=== PATIENT | male | born 1940 | race Hispanic/Latino ===

== ENCOUNTER → 2018-11-15 | Day surgery (SDC) | payer OTHER ==
[2018-11-11 13:15] LABS: BASOPHILS % 0.3 % (0.0-1.0); EOSINOPHILS # (AUTO) 0.1 (0.0-0.4); EOSINOPHILS % 1.9 % (0.0-6.0); HEMATOCRIT 38.4 % (38.2-49.6); HEMOGLOBIN 12.9 g/dL (14.0-18.0); LYMPHOCYTES # (AUTO) 1.8 (1.0-3.2); LYMPHOCYTES % 26.4 % (18.0-39.1); MEAN CORPUSCULAR HEMOGLOBIN 31.8 pg (28-32); MEAN CORPUSCULAR HGB CONC 33.6 g/dL (31-35); MEAN CORPUSCULAR VOLUME 94.6 fL (81-99); MONOCYTES # (AUTO) 0.5 (0.2-0.8); MONOCYTES % 7.1 % (4.4-11.3); NEUTROPHILS # (AUTO) 4.3 (2.1-6.9); PLATELET COUNT 195 x10e3/uL (140-360); RED BLOOD COUNT 4.06 x10e6/uL (4.3-5.7); RED CELL DISTRIBUTION WIDTH 12.6 % (11.7-14.4)
[2018-11-11 13:32] LABS: BLOOD UREA NITROGEN 21 mg/dL (7-26); BUN/CREATININE RATIO 19 (6-25); CALCIUM 9.3 mg/dL (8.4-10.2); CARBON DIOXIDE 26 mmol/L (22-29); CHLORIDE 100 mmol/L (98-107); CREATININE, SERUM 1.12 mg/dL (0.72-1.25); EST GLOMERULAR FILTRATION RATE > 60 ML/MIN (60-); GLUCOSE 213 mg/dL (74-118); SODIUM 134 mmol/L (136-145)
--- NOTE | 2018-11-11 13:36 | Diagnostic Imaging Report ---
EXAM: CHEST 2 VIEWS, PA and lateral DATE: 11/11/2018 12:48 PM Time stamp on exam: 12:59 PM INDICATION: Preoperative for foot surgery COMPARISON: None FINDINGS: LINES/TUBES: None LUNGS: No consolidations or edema. PLEURA: No effusions or pneumothorax. HEART AND MEDIASTINUM: Normal size and contour. There is calcification within the aorta. BONES AND SOFT TISSUES: No acute findings. Flowing osteophytosis of the spine. IMPRESSION: No acute thoracic abnormality. Signed by: Dr. Nicholas Ugalde DO on 11/11/2018 1:32 PM
[~2018-11-15] MED LIST: ATROPINE SULFATE 1 MG/ML VIAL ONE; BUPIVACAINE HCL 0.5% INJ 30 ML VIAL INJ ONE; CEFAZOLIN SOD 1 GM/D5W 50ML 50 ML IV ONE; DEXAMETHASONE SOD PHOS INJ 4 MG/ML VIAL ONE; DEXTROSE 5% 250ML 250 ML IV ONE; FENTANYL CITRATE/PF 100MCG/2 ML INJ ONE; FINASTERIDE5 MG PO; FLOMAX0.4 MG PO; HYDROCHLOROTHIA25 MG PO; KETOROLAC TROMETHAMINE 30 MG/ML VIAL ONE; LIDOCAINE HCL 2% LOCAL INJ 5 ML SDV VIAL INJ ONE; MEPERIDINE HCL INJ 50 MG/ML INJ ONE; METFORMIN HCL500 MG PO; METHOTREXATE S2.5 MG; METOPROLOL SUCC50 MG PO; MIDAZOLAM HCL 2 MG/2 ML VIAL ONE; ONDANSETRON HCL INJ 2 MG/ML VIAL ONE; OXYBUTYNIN CHLOR5 MG PO; PROPOFOL IV EMULSION 10 MG/ML 20 ML VIAL ONE; SEVOFLURANE INHAL SOLN 250 ML PEN BTL ONE; SIMVASTATIN40 MG PO; TRESIBA SC; Z.0.ACTOS45 MG PO; Z.0.ASPIR 8181 MG PO; Z.0.GLIPIZIDE10 MG PO; Z.0.JANUVIA100 MG PO; Z.0.LISINOPRIL40 MG PO; Z.0.WELCHOL625 MG PO; Z.3.CENTRUM SILVER1; [UNRECOGNIZED DRUG - REMARK]; [UNRECOGNIZED DRUG - REMARK]
--- OUTSIDE RECORDS SUMMARY | 2018-11-15 05:09 | XMS REPORT ---
Author Author [facility] Address Unknown Phone Unavailable Care Team Providers Care Utility Agent Name Role Phone Anam MONTERO Unavailable Unavailable Problems This patient has no known problems. Allergies, Adverse Reactions, Alerts This patient has no known allergies or adverse reactions. Medications This patient has no known medications. Results Test Description Test Time Test Comments Text Results Atomic Results Result Comments CHEST 2 VIEWS 2018-11-11 13:31:00 [place] [address] Patient Name: NILDA SARAVIA MR #: [id number] : 1940 Age/Sex: 78/M Req #: [id number] [facility] Physician: Ordered by: Anam MONTERO DPM Report #: [id number] Location: OR Room/Bed: Procedure: [id number] DX/CHEST 2 VIEWS Exam Date: 11/11/18 Exam Time: 1255 REPORT STATUS: Signed EXAM: CHEST 2 VIEWS, PA and lateral DATE: 11/11/2018 12:48 PM Time stamp on exam: 12:59 PM INDICATION: Preoperative for foot surgery COMPARISON: None FINDINGS: LINES/TUBES: None LUNGS: No consolidations or edema. PLEURA: No effusions or pneumothorax. HEART AND MEDIASTINUM: Normal size and contour. There is calcification within the aorta. BONES AND SOFT TISSUES: No acute findings. Flowing osteophytosis of the spine. IMPRESSION: No acute thoracic abnormality. Signed by: Dr. Phill Ugalde DO on 11/11/2018 1:32 PM Dictated By: PHILL UGALDE DO 1332 Transcribed By: HOLA on 11/11/181331 COPY TO: Anam MONTERO DPM
--- NOTE | 2018-11-15 08:52 | Operative Report ---
DATE OF PROCEDURE: November 15, 2018 PREOPERATIVE DIAGNOSES 1. Right hallux valgus. 2. Right hammertoe. 3. Right 2ng digit plantar plate rupture. PLANNED PROCEDURES 1. Right Liam bunionectomy with 1st metatarsal osteotomy and internal fixation. 2. Right 2nd hammertoe digit arthrodesis. 3. Right 2nd metatarsophalangeal joint plantar plate repair. SURGEON: Anam John DPM LABORER TREE TAPPING: Gumaro Champion DPM ANESTHESIA: General with a postoperative block consisting of 20 mL of 0.5% Marcaine plain mixed with 1 mL of dexamethasone phosphate. HEMOSTASIS: Pneumatic thigh tourniquet set at 350 mmHg for a total time of approximately 1 hour and 6 minutes. MATERIALS: 2-0 Vicryl, 3-0 Vicryl. 2-0 FiberWire, one 0.045 K-wire, 2 Synthes cortical bone screws measuring 14 mm and 16 mm. ESTIMATED BLOOD LOSS: Less than 10 mL. PATHOLOGY: None. PROCEDURE NOTE: The patient was seen in the preoperative waiting room where the correct procedure and site was identified. The patient was brought into the operating room and placed on the operating table in the supine position. General anesthesia was initiated at this time. A well-padded pneumatic tourniquet was placed about the patient's right thigh. The right foot, ankle and leg were then scrubbed, prepped and draped in the usual aseptic manner. The right foot and ankle was exsanguinated with an Esmarch bandage and the pneumatic thigh tourniquet was inflated to 350 mmHg for a total time of approximately 1 hour and 6 minutes. Attention was directed the dorsomedial aspect of the patient's right 1st metatarsophalangeal joint where a 5 cm curvilinear incision was made directly over the metatarsophalangeal joint medial to the extensor hallucis longus tendon. The incision was carried through the subcutaneous tissues them from deeper underlying structures. All vital neurovascular structures were identified and retracted medially and laterally, and all bleeders were cauterized or ligated as deemed necessary. Next, attention was directed to the 1st interspace where through the same incision a full lateral release was performed consisting of a deep transverse metatarsal ligament, lateral collateral ligament, as well as a fibular sesamoid ligament. The hallux was then put through a range of motion and found to be functioning in a more proper anatomic alignment. Next, attention was directed back to the 1st metatarsophalangeal joint where a inverted L-capsulotomy was performed to allow for good visualization of 1st metatarsal head. The medial eminence was resected and passed off to the back table. Next, a medial to lateral Chevron osteotomy was performed with the dorsal wing longer to allow for proper fixation. The capital fragment was then transposed laterally approximately 3 to 5 mm and impacted onto the shaft of the 1st metatarsal. Next, utilizing techniques of AO fixation, two 2 mm x 14 mm and 16 mm cortical bone screws were placed with AO fixation. The fixation site is stable. This was confirmed via intraoperative fluoroscopy. The wound was then flushed with copious amounts of sterile saline. Capsule and deep tissue were reapproximated with 2-0 Vicryl, subcutaneous tissue with 3-0 Vicryl, and the skin was closed using a running interlocking stitch with 4-0 nylon. Attention was then directed to the 2nd proximal interphalangeal joint where a 3 cm linear incision was made directly over the proximal interphalangeal joint. The incision was carried through the subcutaneous tissues them from deeper underlying structures. A tenotomy and capsulotomy was performed at the level of the PIPJ, and a tenotomy was performed at the level of the PIPJ to allow for good visualization of the 2nd metatarsal head, as well as the base of the 2nd proximal phalanx head and the base of the middle phalanx. These were both resected utilizing a sagittal saw and denuded of all articular cartilage. Next, attention was directed to the metatarsophalangeal joint where a 2 cm linear incision was made directly over the metatarsophalangeal joint to allow for a tenotomy and capsulotomy. The 2nd digit was then put through range of motion and was able to be reduced manually. This was pinned in a retrograde fashion distal to the middle and distal phalanx back to the proximal phalanx and into the metatarsal head. This was confirmed via intraoperative fluoroscopy. Next, attention was directed to the plantar aspect of the patient's right 2nd metatarsophalangeal joint where a 3 cm linear incision was made. The incision was carried through the subcutaneous tissues and all visual structures were identified and retracted medially and laterally. The tendon was retracted medially and the dissection was carried down to the level of the joint. There was noted to be a transverse tear approximately 90% of the plantar plate capsule complex. This was reapproximated with simple interrupted sutures with 2-0 FiberWire. Both wounds were flushed with copious amounts of sterile saline. Capsular and deep tissue were approximated with 3-0 Vicryl and the skin was closed using a running interlocking stitch with 4-0 Prolene. The K-wire was bent and capped. All incision sites dressed with Adaptic, 4 x 4s, Kerlix, Webril, Unaboot, and 4-inch Michael wrap. The patient tolerated the procedure and anesthesia well. The patient was transferred to the postoperative recovery unit with vital signs stable and vascular status intact. The patient was monitored there for a short period of time before being sent home with the following written and oral instructions: 1. Keep the dressing clean, dry and intact. 2. The patient is to remain nonweightbearing to the right lower extremity and to avoid excessive ambulation until being seen in the office. 3. The patient was given the office number and instructed to contact us if any problems should arise. DICTATED BY GUMARO CHAMPION DPM Job#: [id number] JULIENNE
[2018-11-15 10:15] VITALS: BP 138/79
== END | disposition home or self-care (01) ==
LOC: OR 05:07
PROVIDERS: ATTEND Podiatrist Foot & Ankle Surgery
DX: M20.11 Hallux valgus (acquired), right foot (principal); M20.41 Other hammer toe(s) (acquired), right foot; M20.5X1 Other deformities of toe(s) (acquired), right foot; E11.9 Type 2 diabetes mellitus without complications; Z01.810 Encounter for preprocedural cardiovascular examination; Z01.812 Encounter for preprocedural laboratory examination; Z01.818 Encounter for other preprocedural examination; I10 Essential (primary) hypertension; Z79.82 Long term (current) use of aspirin; Z79.4 Long term (current) use of insulin
CPT/HCPCS: 28270; 28285; 28296; 28313; 36415 ×2; 71046; 80048; 82948; 85025; 93005; C1713 ×3; J0461; J0690; J1100; J1885; J2001; J2175; J2250; J2405; J2704; J7070